=== PATIENT | male | born 1960 | race American Indian/Alaskan Native ===

== ENCOUNTER 2017-03-11 14:40 | Emergency (ER) | payer MEDICARE, MEDICAID ==
--- NOTE | ~2017-03-11 | ER ---
PATIENT'S NAME: JOSH MURRAY [facility] AGE: 56 Y [address] ROOM: [place] [address] LOCATION: [facility] ADMIT DATE: 03/11/2017 ER/Outpatient Report DISCHARGE DATE: 03/11/2017 FAMILY PHYSICIAN: Physician, Unknown ATTENDING PHYSICIAN: Taras Childs CHIEF COMPLAINT: Left-sided pain, numbness, and weakness. HISTORY OF PRESENT ILLNESS: The patient notes that he has had several weeks of pain, left-sided weakness and numbness with no new symptoms. Last night, he had severe restlessness in his legs which he always has and went to [facility] and they were unhappy with the care. They came here "directly after they left there." The arrival time here is at 1440 hours. They were discharged there at 0700 hours. He has no new symptoms today and is seeking pain management. PAST MEDICAL HISTORY: Documented on the record and reviewed by me. SOCIAL HISTORY: Documented on the record and reviewed by me. MEDICATIONS: Documented on the record and reviewed by me. ALLERGIES: DOCUMENTED ON THE RECORD AND REVIEWED BY ME. REVIEW OF SYSTEMS: All systems reviewed and negative except as noted in the HPI. PHYSICAL EXAMINATION: VITAL SIGNS: Blood pressure 130/74, pulse 82, respiratory rate 16, temperature 96.6, SpO2 is 97% on room air. Pain is rated 8/10. GENERAL: Disheveled male, appearing older than stated age, recumbent on the exam table. No outward signs of pain or distress. Resting comfortably. Intermittently sleeping. NEURO: The patient is awake intermittently. He has no speech abnormalities. No appreciable cranial nerve deficits. He has very lazy speech. He is intelligible however. On exam, he walks with a slight limp. He has no gross motor deficits on his physical exam, other than a 4+ strength in the left upper extremity. He moves all extremities spontaneously. No other obvious abnormalities. HEENT: Normocephalic, atraumatic. Eyes are PERRL. Oropharynx is clear. PATIENT'S NAME: JOSH MURRAY [facility] AGE: 56 Y [address] ROOM: [place] [address] LOCATION: [facility] ADMIT DATE: 03/11/2017 ER/Outpatient Report DISCHARGE DATE: 03/11/2017 FAMILY PHYSICIAN: Physician, Unknown ATTENDING PHYSICIAN: Taras Childs NECK: Supple. Trachea is midline. Dentition in poor repair. CHEST: Heart is regular rate and rhythm with no murmurs. LUNGS: Clear to auscultation bilateral. No rhonchi, wheezes, or rales. ABDOMEN: Benign. BACK: Normal to inspection. Diffusely tender to palpation, baseline. EXTREMITIES: Grossly well-formed. LABS AND X-RAYS: Head CT unremarkable per Radiology. IMPRESSION: Chronic left-sided numbness and pain. EMERGENCY DEPARTMENT COURSE: The patient was seen and evaluated. I got his permission to obtain records from [facility]. According to the records, he was discharged at 0730 hours this morning. He received one dose of Ativan and had complete resolution of all of his chief complaint symptoms of restless legs and pain. He was found to be sleeping. They were able to get him up, dressed him, and get him discharged. His labs at that time were unremarkable as reviewed by me. Based on his time course, I do not believe the patient needs inpatient evaluation for stroke. Head CT was obtained, no mass lesions, no evidence of old stroke. He does not require hospital evaluation for this issue. He will be discharged to home with instructions to take his Valium prescription as given by [facility]. As the Ativan did seem to help his symptoms significantly. On multiple re-evaluations, the patient was found to be sleeping in his bed in no obvious pain. All questions were answered. The patient was discharged in good condition. MD ROSALIA DAMICO/thalia /[id number] d: 03/12/17 1114 t: 03/21/171932, OUTPATIENT REPORT
== END 2017-03-11 16:57 | disposition disaster alternative care site (69) ==
LOC: GMED 14:40
DX: G89.29 Other chronic pain (principal); R20.0 Anesthesia of skin; M10.9 Gout, unspecified; G25.81 Restless legs syndrome; I25.10 Atherosclerotic heart disease of native coronary artery without angina pectoris; F17.210 Nicotine dependence, cigarettes, uncomplicated; Z86.73 Personal history of transient ischemic attack (TIA), and cerebral infarction without residual deficits; Z86.14 Personal history of Methicillin resistant Staphylococcus aureus infection; Z88.0 Allergy status to penicillin; Z79.899 Other long term (current) drug therapy